=== PATIENT | female | born 1950 | race Caucasian/White ===

== ENCOUNTER 2020-08-15 09:04 | Outpatient (CLI) | payer MEDICARE, OTHER | END 2020-08-15 09:05 | disposition home or self-care (01) | LOC: CSHWCC 09:04 | PROVIDERS: ATTEND Nurse Practitioner Family | DX: L89.93 Pressure ulcer of unspecified site, stage 3 (principal); L89.620 Pressure ulcer of left heel, unstageable; L89.890 Pressure ulcer of other site, unstageable; R60.0 Localized edema; G82.21 Paraplegia, complete; I10 Essential (primary) hypertension; W17.89XD Other fall from one level to another, subsequent encounter | CPT/HCPCS: 11042; 97139; G0463; 99213 ==

== ENCOUNTER 2020-08-29 10:13 | Outpatient (CLI) | payer MEDICARE, OTHER | END 2020-08-29 10:14 | disposition home or self-care (01) | LOC: CSHWCC 10:13 | PROVIDERS: ATTEND Nurse Practitioner Family | DX: L89.620 Pressure ulcer of left heel, unstageable (principal); L89.93 Pressure ulcer of unspecified site, stage 3; L89.890 Pressure ulcer of other site, unstageable; R60.0 Localized edema; G82.21 Paraplegia, complete; W17.89XD Other fall from one level to another, subsequent encounter | CPT/HCPCS: 11042; 99213; G0463 ==

== ENCOUNTER 2020-09-02 13:54 | Outpatient (CLI) | payer MEDICARE, OTHER | END 2020-09-02 13:55 | disposition home or self-care (01) | LOC: CSHMRI 13:54 | PROVIDERS: ATTEND Nurse Practitioner Family | DX: L89.94 Pressure ulcer of unspecified site, stage 4 (principal); L89.894 Pressure ulcer of other site, stage 4; M86.9 Osteomyelitis, unspecified; L89.524 Pressure ulcer of left ankle, stage 4 | CPT/HCPCS: 82565 ==

== ENCOUNTER 2020-09-16 11:29 | Outpatient (CLI) | payer MEDICARE, OTHER | END 2020-09-16 11:30 | disposition home or self-care (01) | LOC: CSHWCC 11:29 | PROVIDERS: ATTEND Nurse Practitioner Family | DX: L89.93 Pressure ulcer of unspecified site, stage 3 (principal); L89.620 Pressure ulcer of left heel, unstageable; L89.890 Pressure ulcer of other site, unstageable; L89.95 Pressure ulcer of unspecified site, unstageable; R60.0 Localized edema; G82.21 Paraplegia, complete; I10 Essential (primary) hypertension; W17.89XA Other fall from one level to another, initial encounter | CPT/HCPCS: 11043; 97139; G0463; 99213 ==

== ENCOUNTER 2020-12-18 10:34 | Outpatient (CLI) | payer MEDICARE, OTHER | END 2020-12-18 10:35 | disposition home or self-care (01) | LOC: CSHWCC 10:34 | PROVIDERS: ATTEND Nurse Practitioner Family | DX: L89.521 Pressure ulcer of left ankle, stage 1 (principal); L89.624 Pressure ulcer of left heel, stage 4; L89.892 Pressure ulcer of other site, stage 2; G82.21 Paraplegia, complete; I10 Essential (primary) hypertension; R60.0 Localized edema; S91.202D Unspecified open wound of left great toe with damage to nail, subsequent encounter; W17.89XD Other fall from one level to another, subsequent encounter | CPT/HCPCS: 15275; 97139; G0463; Q4133; 99213 ==

== ENCOUNTER 2021-01-01 09:55 | Outpatient (CLI) | payer MEDICARE, OTHER | END 2021-01-01 09:56 | disposition home or self-care (01) | LOC: CSHWCC 09:55 | PROVIDERS: ATTEND Nurse Practitioner Family | DX: S91.202D Unspecified open wound of left great toe with damage to nail, subsequent encounter (principal); L89.624 Pressure ulcer of left heel, stage 4; L89.892 Pressure ulcer of other site, stage 2; R60.0 Localized edema; I10 Essential (primary) hypertension; G82.21 Paraplegia, complete; W17.89XS Other fall from one level to another, sequela | CPT/HCPCS: 11042; 99213; G0463 ==

== ENCOUNTER 2021-03-04 09:09 | Outpatient (CLI) | payer MEDICARE, OTHER | END 2021-03-04 09:10 | disposition home or self-care (01) | LOC: CSHWCC 09:09 | PROVIDERS: ATTEND Nurse Practitioner Family | DX: L89.522 Pressure ulcer of left ankle, stage 2 (principal); L89.622 Pressure ulcer of left heel, stage 2; G82.21 Paraplegia, complete; R60.0 Localized edema; I10 Essential (primary) hypertension; W17.89XD Other fall from one level to another, subsequent encounter | CPT/HCPCS: 11042; 97139; G0463; 99213 ==

== ENCOUNTER 2021-03-24 08:40 | Outpatient (CLI) | payer MEDICARE, OTHER | END 2021-03-24 08:41 | disposition home or self-care (01) | LOC: CSHWCC 08:40 | PROVIDERS: ATTEND Nurse Practitioner Family | DX: L89.522 Pressure ulcer of left ankle, stage 2 (principal); L89.622 Pressure ulcer of left heel, stage 2; G82.21 Paraplegia, complete; I10 Essential (primary) hypertension; R60.0 Localized edema; W17.89XD Other fall from one level to another, subsequent encounter | CPT/HCPCS: 11042; 99213; G0463 ==

== ENCOUNTER 2021-04-10 09:17 | Outpatient (CLI) | payer MEDICARE, OTHER | END 2021-04-10 09:18 | disposition home or self-care (01) | LOC: CSHWCC 09:17 | PROVIDERS: ATTEND Nurse Practitioner Family | DX: L89.522 Pressure ulcer of left ankle, stage 2 (principal); L89.622 Pressure ulcer of left heel, stage 2; G82.21 Paraplegia, complete; I10 Essential (primary) hypertension; R60.0 Localized edema; W17.89XD Other fall from one level to another, subsequent encounter | CPT/HCPCS: 29581; 97139; G0463; 99213 ==

== ENCOUNTER 2021-04-24 11:21 | Outpatient (CLI) | payer MEDICARE, OTHER | END 2021-04-24 11:22 | disposition home or self-care (01) | LOC: CSHWCC 11:21 | PROVIDERS: ATTEND Nurse Practitioner Family | DX: L89.522 Pressure ulcer of left ankle, stage 2 (principal); L89.622 Pressure ulcer of left heel, stage 2; R60.0 Localized edema; I10 Essential (primary) hypertension; G82.21 Paraplegia, complete; W17.89XD Other fall from one level to another, subsequent encounter ==

== ENCOUNTER 2021-05-08 13:01 | Outpatient (CLI) | payer MEDICARE, OTHER | END 2021-05-08 13:02 | disposition home or self-care (01) | LOC: CSHWCC 13:01 | PROVIDERS: ATTEND Nurse Practitioner Family | DX: L89.522 Pressure ulcer of left ankle, stage 2 (principal); L89.622 Pressure ulcer of left heel, stage 2; G82.21 Paraplegia, complete; I10 Essential (primary) hypertension; R60.0 Localized edema; W17.89XS Other fall from one level to another, sequela | CPT/HCPCS: 11042; 97139; G0463; 99213 ==

== ENCOUNTER 2021-05-22 12:36 | Outpatient (CLI) | payer MEDICARE, OTHER | END 2021-05-22 12:37 | disposition home or self-care (01) | LOC: CSHWCC 12:36 | PROVIDERS: ATTEND Nurse Practitioner Family | DX: L89.522 Pressure ulcer of left ankle, stage 2 (principal); L89.622 Pressure ulcer of left heel, stage 2; R60.0 Localized edema; G82.21 Paraplegia, complete; I10 Essential (primary) hypertension; W17.89XD Other fall from one level to another, subsequent encounter ==

== ENCOUNTER 2021-06-20 11:03 | Outpatient (CLI) | payer MEDICARE, OTHER | END 2021-06-20 11:04 | disposition home or self-care (01) | LOC: CSHWCC 11:03 | PROVIDERS: ATTEND Nurse Practitioner Family | DX: R60.0 Localized edema (principal) | CPT/HCPCS: 97139; G0463; 99213 ==

== ENCOUNTER 2021-09-10 10:27 | Outpatient (CLI) | payer MEDICARE, OTHER | END 2021-09-10 10:28 | disposition home or self-care (01) | LOC: CSHWCC 10:27 | PROVIDERS: ATTEND Nurse Practitioner Family | DX: I87.312 Chronic venous hypertension (idiopathic) with ulcer of left lower extremity (principal); L97.322 Non-pressure chronic ulcer of left ankle with fat layer exposed; R60.0 Localized edema | CPT/HCPCS: 97139; G0463; 99213 ==

== ENCOUNTER 2021-09-18 12:47 | Outpatient (CLI) | payer MEDICARE, OTHER | END 2021-09-18 12:48 | disposition home or self-care (01) | LOC: CSHWCC 12:47 | PROVIDERS: ATTEND Nurse Practitioner Family | DX: I87.312 Chronic venous hypertension (idiopathic) with ulcer of left lower extremity (principal); L97.322 Non-pressure chronic ulcer of left ankle with fat layer exposed; S91.309D Unspecified open wound, unspecified foot, subsequent encounter; R60.0 Localized edema ==

== ENCOUNTER 2021-09-25 12:49 | Outpatient (CLI) | payer MEDICARE, OTHER | END 2021-09-25 12:50 | disposition home or self-care (01) | LOC: CSHWCC 12:49 | PROVIDERS: ATTEND Nurse Practitioner Family | DX: I87.312 Chronic venous hypertension (idiopathic) with ulcer of left lower extremity (principal); L97.322 Non-pressure chronic ulcer of left ankle with fat layer exposed; R60.0 Localized edema ==

== ENCOUNTER 2021-10-02 13:11 | Outpatient (CLI) | payer MEDICARE, OTHER | END 2021-10-02 13:12 | disposition home or self-care (01) | LOC: CSHWCC 13:11 | PROVIDERS: ATTEND Nurse Practitioner Family | DX: I87.312 Chronic venous hypertension (idiopathic) with ulcer of left lower extremity (principal); L97.322 Non-pressure chronic ulcer of left ankle with fat layer exposed | CPT/HCPCS: 11042; 97607 ==

== ENCOUNTER 2021-10-09 13:30 | Outpatient (CLI) | payer MEDICARE, OTHER | END 2021-10-09 13:31 | disposition home or self-care (01) | LOC: CSHWCC 13:30 | PROVIDERS: ATTEND Nurse Practitioner Family | DX: I87.312 Chronic venous hypertension (idiopathic) with ulcer of left lower extremity (principal); L97.322 Non-pressure chronic ulcer of left ankle with fat layer exposed ==

== ENCOUNTER 2021-10-16 13:01 | Outpatient (CLI) | payer MEDICARE, OTHER | END 2021-10-16 13:02 | disposition home or self-care (01) | LOC: CSHWCC 13:01 | PROVIDERS: ATTEND Nurse Practitioner Family | DX: I87.312 Chronic venous hypertension (idiopathic) with ulcer of left lower extremity (principal); L97.322 Non-pressure chronic ulcer of left ankle with fat layer exposed; R60.0 Localized edema | CPT/HCPCS: 97139; G0463; 99213 ==

== ENCOUNTER 2021-10-23 12:50 | Outpatient (CLI) | payer MEDICARE, OTHER | END 2021-10-23 12:51 | disposition home or self-care (01) | LOC: CSHWCC 12:50 | PROVIDERS: ATTEND Nurse Practitioner Family | DX: I87.312 Chronic venous hypertension (idiopathic) with ulcer of left lower extremity (principal); L97.322 Non-pressure chronic ulcer of left ankle with fat layer exposed; R60.0 Localized edema | CPT/HCPCS: 97139; G0463; 99213 ==

== ENCOUNTER 2021-10-30 12:58 | Outpatient (CLI) | payer MEDICARE, OTHER | END 2021-10-30 12:59 | disposition home or self-care (01) | LOC: CSHWCC 12:58 | PROVIDERS: ATTEND Nurse Practitioner Family | DX: I87.312 Chronic venous hypertension (idiopathic) with ulcer of left lower extremity (principal); L97.322 Non-pressure chronic ulcer of left ankle with fat layer exposed; R60.0 Localized edema | CPT/HCPCS: 29581; 97607 ==

== ENCOUNTER 2021-11-06 12:52 | Outpatient (CLI) | payer MEDICARE, OTHER | END 2021-11-06 12:53 | disposition home or self-care (01) | LOC: CSHWCC 12:52 | PROVIDERS: ATTEND Nurse Practitioner Family | DX: I87.312 Chronic venous hypertension (idiopathic) with ulcer of left lower extremity (principal); L97.322 Non-pressure chronic ulcer of left ankle with fat layer exposed; R60.0 Localized edema | CPT/HCPCS: 29581; 97139; G0463; 99212 ==

== ENCOUNTER 2021-12-01 10:57 | Outpatient (CLI) | payer MEDICARE, OTHER | END 2021-12-01 10:58 | disposition home or self-care (01) | LOC: CSHWCC 10:57 | PROVIDERS: ATTEND Nurse Practitioner Family | DX: I87.312 Chronic venous hypertension (idiopathic) with ulcer of left lower extremity (principal); L97.322 Non-pressure chronic ulcer of left ankle with fat layer exposed; R60.0 Localized edema ==

== ENCOUNTER 2021-12-15 10:11 | Outpatient (CLI) | payer MEDICARE, OTHER | END 2021-12-15 10:12 | disposition home or self-care (01) | LOC: CSHWCC 10:11 | PROVIDERS: ATTEND Nurse Practitioner Family | DX: I87.312 Chronic venous hypertension (idiopathic) with ulcer of left lower extremity (principal); L97.322 Non-pressure chronic ulcer of left ankle with fat layer exposed; R60.0 Localized edema | CPT/HCPCS: 11042; 99212; G0463 ==

== ENCOUNTER 2022-01-14 11:12 | Outpatient (CLI) | payer MEDICARE, OTHER | END 2022-01-14 11:13 | disposition home or self-care (01) | LOC: CSHWCC 11:12 | PROVIDERS: ATTEND Preventive Medicine Undersea and Hyperbaric Medicine | DX: L89.623 Pressure ulcer of left heel, stage 3 (principal); I87.312 Chronic venous hypertension (idiopathic) with ulcer of left lower extremity; L97.322 Non-pressure chronic ulcer of left ankle with fat layer exposed; R60.0 Localized edema | CPT/HCPCS: 99213; G0463 ==

== ENCOUNTER 2022-01-28 11:18 | Outpatient (CLI) | payer OTHER | END 2022-01-28 11:19 | disposition home or self-care (01) | LOC: CSHWCC 11:18 | PROVIDERS: ATTEND Preventive Medicine Undersea and Hyperbaric Medicine | DX: L89.623 Pressure ulcer of left heel, stage 3 (principal); I87.312 Chronic venous hypertension (idiopathic) with ulcer of left lower extremity; L97.322 Non-pressure chronic ulcer of left ankle with fat layer exposed; R60.0 Localized edema | CPT/HCPCS: 99213; G0463 ==

== ENCOUNTER 2022-02-25 11:08 | Outpatient (CLI) | payer MEDICARE, OTHER | END 2022-02-25 11:09 | disposition home or self-care (01) | LOC: CSHWCC 11:08 | PROVIDERS: ATTEND Preventive Medicine Undersea and Hyperbaric Medicine | DX: L89.623 Pressure ulcer of left heel, stage 3 (principal); I87.312 Chronic venous hypertension (idiopathic) with ulcer of left lower extremity; L97.322 Non-pressure chronic ulcer of left ankle with fat layer exposed; R60.0 Localized edema ==

== ENCOUNTER 2022-03-26 10:39 | Outpatient (CLI) | payer OTHER | END 2022-03-26 10:40 | disposition home or self-care (01) | LOC: CSHWCC 10:39 | PROVIDERS: ATTEND Nurse Practitioner Family | DX: R60.0 Localized edema (principal) | CPT/HCPCS: 97139; G0463; 99213 ==

== ENCOUNTER 2023-01-12 13:20 | Emergency (ER) | payer OTHER, MEDICAID ==
[~2023-01-12 13:20] MED LIST: Iopamidol 370 76% 100 ML VIAL ONE
[2023-01-12 14:14] LABS: #Basophils 0.1 10x3/uL (0.0-0.2); #Eosinphils 0.2 10x3/uL (0.0-0.5); #Monocytes 0.4 10x3/uL (0.0-1.1); #Neutrophils 2.9 10x3/uL (1.5-8.4); %Eosinophils 4.1 % (0.0-6.0); %Lymphocytes 27.2 % (18.0-47.0); %Monocytes 7.8 % (0.0-10.0); %Neutrophils 59.7 % (40.0-75.0); Hematocrit 45.9 % (34.9-44.5); Mean Corpuscular HGB CONC 32.7 g/dL (32.0-36.0); Mean Corpuscular Hemoglobin 30.9 pg (27.0-33.0); Mean Corpuscular Volume 94.4 fl (81.6-98.3); Mean Platelet Volume 11.9 fl (7.4-10.4); Platelet Count 150 10x3/uL (150-450); RBC Distribution Width 15.9 % (11.5-14.5); Red Blood Cell (RBC) Count 4.86 10x6/uL (3.90-5.03); White Blood Cell (WBC) Count 4.9 10x3/uL (3.5-10.5)
[2023-01-12 14:24] LABS: INR-International Normal Ratio 1.2; PTT 34.8 sec (22.0-33.0); Prothrombin Time 12.9 sec (9.5-12.1)
[2023-01-12 14:27] LABS: ALT (SGPT) 26 U/L (8-55); AST (SGOT) 33 U/L (5-34); Albumin 3.9 g/dL (3.4-4.8); Alkaline Phosphatase 146 U/L (40-110); Anion Gap 21 mmol/L (10-20); BUN (Urea Nitrogen) 22 mg/dL (9.8-20.1); Bilirubin, Total 4.6 mg/dL (0.2-1.2); Calc. Creatinine Clearance 0 mL/min (70-130); Calcium 9.8 mg/dL (7.8-10.44); Carbon Dioxide 21 mmol/L (23-31); Chloride 105 mmol/L (98-107); Estimated GFR 43; Globulin 2.8 g/dL (2.4-3.5); Glucose 97 mg/dL (83-110); Protein, Total 6.7 g/dL (5.8-8.1); Sodium 143 mmol/L (136-145)
[2023-01-12 14:35] LABS: Troponin I Less than 0.010 ng/mL (< 0.028)
[2023-01-12 17:02] LABS: Lactic Acid 1.8 mmol/L (0.5-2.2)
[2023-01-12 17:23] LABS: SARS-CoV-2 NAA Rapid Test Not Detected (NotDetected)
== END 2023-01-12 19:45 | disposition short-term general hospital (02) ==
LOC: CSHERS 13:20
DX: R06.02 Shortness of breath (principal); I10 Essential (primary) hypertension; Z79.899 Other long term (current) drug therapy; Z20.822 Contact with and (suspected) exposure to COVID-19
CPT/HCPCS: 0240U; 71045; 71275; 80053; 83605; 84484; 85025; 85610; 85730; 87040; 93005; 94760; 36415

== ENCOUNTER 2023-03-01 17:54 | Inpatient (IN) | payer OTHER, MEDICAID ==
[~2023-03-01 17:54] MED LIST changes: +Iopamidol 300 61% 100 ML VIAL FS ONE; -Iopamidol 370 76% 100 ML VIAL ONE
[2023-03-01] MEDS ORDERED: Ondansetron PF 4 MG/2 ML Vial ONE (19:16)
[2023-03-01] MEDS ORDERED: Morphine 4 MG/ML VIAL ONE (19:16)
[2023-03-01 19:17] LABS: #Eosinphils 0.1 10x3/uL (0.0-0.5); #Monocytes 0.7 10x3/uL (0.0-1.1); #Neutrophils 9.3 10x3/uL (1.5-8.4); %Basophils 0.3 % (0.0-2.0); %Eosinophils 0.6 % (0.0-6.0); %Lymphocytes 11.3 % (18.0-47.0); %Monocytes 6.3 % (0.0-10.0); %Neutrophils 80.7 % (40.0-75.0); Hematocrit 43.3 % (34.9-44.5); Hemoglobin 14.5 g/dL (12.0-15.5); Mean Corpuscular HGB CONC 33.5 g/dL (32.0-36.0); Mean Corpuscular Hemoglobin 31.3 pg (27.0-33.0); Mean Corpuscular Volume 93.5 fl (81.6-98.3); Mean Platelet Volume 10.6 fl (7.4-10.4); Platelet Count 248 10x3/uL (150-450); RBC Distribution Width 14.9 % (11.5-14.5); Red Blood Cell (RBC) Count 4.63 10x6/uL (3.90-5.03); White Blood Cell (WBC) Count 11.6 10x3/uL (3.5-10.5)
[2023-03-01 19:31] LABS: ALT (SGPT) 18 U/L (8-55); AST (SGOT) 24 U/L (5-34); Albumin 3.4 g/dL (3.4-4.8); Alkaline Phosphatase 137 U/L (40-110); Anion Gap 17 mmol/L (10-20); BUN (Urea Nitrogen) 48 mg/dL (9.8-20.1); Bilirubin, Total 3.2 mg/dL (0.2-1.2); Calc. Creatinine Clearance 0 mL/min (70-130); Calcium 8.9 mg/dL (7.8-10.44); Carbon Dioxide 23 mmol/L (23-31); Chloride 102 mmol/L (98-107); Estimated GFR 44; Globulin 3.1 g/dL (2.4-3.5); Glucose 95 mg/dL (83-110); Lipase 21 U/L (8-78); Potassium 4.1 mmol/L (3.5-5.1); Protein, Total 6.5 g/dL (5.8-8.1); Sodium 138 mmol/L (136-145)
[2023-03-01 19:45] LABS: INR-International Normal Ratio 1.2; PTT 30.9 sec (22.0-33.0); Prothrombin Time 13.2 sec (9.5-12.1)
[2023-03-01] MEDS ORDERED: Vancomycin 1 GM VIAL ONE (19:45)
[2023-03-01] MEDS ORDERED: Cefepime 2 GM VIAL ONE (19:45)
[2023-03-01 20:44] LABS: Bilirubin Neg (Negative); Blood, Urine 50 (Negative); Clarity Cloudy (Clear); Glucose, Urine (Dipstick) Normal (Negative); Ketone, Urine Negative (Negative); Leukocyte 500 (Negative); Nitrite Positive (Negative); Protein, Urine (Dipstick) 30 mg/dl (Neg-Trace); Urobilinogen Normal mg/dL (Less than 2)
[2023-03-01 21:04] LABS: Bacteria/HPF 2+ HPF (None Seen); CAUTI Indications for Culture Spinal Cord Injury; Squamous Epithelial 0-3 HPF (0-3); Urine Culture Reflex Yes Yes; WBC/HPF Greater Than 50 HPF (0-3)
[2023-03-01 22:05] LABS: Digoxin 0.71 ng/mL (0.8-2.0)
[2023-03-02] MEDS ORDERED: Senokot S 8.6-50 MG TAB PO PRN (00:59)
[2023-03-02] MEDS ORDERED: Guaifenesin DM 100-10/5 ML UDCUP PO PRN (00:59)
[2023-03-02] MEDS: Lactated Ringer's 1,000 ML IV SCH ×2 (03:34→16:32)
[2023-03-02] MEDS ORDERED: Meropenem 1 GM in Sodium Chloride 0.9% 100 ML IVPB SCH ×3 (04:00→12:00)
[2023-03-02] MEDS ORDERED: FLU VACC QS2023(65UP)/MF59C/PF 60 MCG/0.5 ML SYRINGE IM ONE (04:00)
[2023-03-02 04:40] LABS: #Basophils 0.1 10x3/uL (0.0-0.2); #Eosinphils 0.1 10x3/uL (0.0-0.5); #Monocytes 0.6 10x3/uL (0.0-1.1); #Neutrophils 8.1 10x3/uL (1.5-8.4); %Basophils 0.5 % (0.0-2.0); %Eosinophils 0.9 % (0.0-6.0); %Lymphocytes 8.4 % (18.0-47.0); %Monocytes 5.8 % (0.0-10.0); %Neutrophils 83.6 % (40.0-75.0); Hematocrit 37.9 % (34.9-44.5); Hemoglobin 12.3 g/dL (12.0-15.5); Mean Corpuscular HGB CONC 32.5 g/dL (32.0-36.0); Mean Corpuscular Hemoglobin 30.3 pg (27.0-33.0); Mean Corpuscular Volume 93.3 fl (81.6-98.3); Mean Platelet Volume 10.4 fl (7.4-10.4); Platelet Count 202 10x3/uL (150-450); Red Blood Cell (RBC) Count 4.06 10x6/uL (3.90-5.03); White Blood Cell (WBC) Count 9.6 10x3/uL (3.5-10.5)
[2023-03-02 04:49] LABS: Anion Gap 15 mmol/L (10-20); BUN (Urea Nitrogen) 39 mg/dL (9.8-20.1); Calc. Creatinine Clearance 66 mL/min (70-130); Calcium 8.1 mg/dL (7.8-10.44); Carbon Dioxide 18 mmol/L (23-31); Chloride 109 mmol/L (98-107); Estimated GFR 64; Glucose 97 mg/dL (83-110); Potassium 3.6 mmol/L (3.5-5.1); Sodium 138 mmol/L (136-145)
[2023-03-02] MEDS ORDERED: Vancomycin HCl 500 MG in Sodium Chloride 0.9% 100 ML IVPB SCH (05:00)
[2023-03-02] MEDS: Mometasone/Formoterol 60 PUFF AER INH SCH ×2 (07:04→19:18)
[2023-03-02] MEDS: Ipratropium/Albuterol 3 ML NEB NEB SCH ×4 (07:04→19:15)
[2023-03-02] MEDS: NOREPINEPHRINE 8 MG/250 ML-D5W 250 ML IVPB SCH ×2 (08:15→19:42)
[2023-03-02] MEDS ORDERED: RIOCIGUAT 1 MG PO SCH (09:00)
[2023-03-02] MEDS: Digoxin 0.125 MG TAB PO SCH (09:04)
[2023-03-02] MEDS: Pantoprazole 40 MG VIAL IVP SCH (09:05)
[2023-03-02 14:06] LABS: Campy jejuni + coli by PCR Negative (Negative); STEC Shiga Toxin 1+2 Negative (Negative); Salmonella spp. by PCR Negative (Negative); Shigella spp + EIEC by PCR Negative (Negative)
[2023-03-02 18:13] LABS: Actual Bicarbonate (HCO3v) 23.6 mEq/L (22-28); Base Excess -0.5 mEq/L (-2 - +2); Calcium, Ionized (venous) 1.14 mmol/L (1.16-1.32); Chloride (VBG) 101 mmol/L (98-106); Hematocrit-VBG 46 % (36.0-47.0); Hemoglobin (Hb) 15.8 g/dL (11.7-16.1); Potassium (VBG) 3.79 mmol/L (3.70-5.30); Sodium 137 mmol/L (133-146); pH (venous) 7.421 (7.32-7.43)
[2023-03-02 18:46] LABS: Puncture Site Other Site; RapidComm Collect By CBN
[2023-03-02] MEDS: Meropenem 1 GM in Sodium Chloride 0.9% 100 ML IVPB SCH (20:02)
[2023-03-02] MEDS ORDERED: Vancomycin 1 GM in Sodium Chloride 0.9% 250 ML 250 ML IVPB SCH (21:00)
[2023-03-03 04:03] LABS: #Basophils 0.1 10x3/uL (0.0-0.2); #Monocytes 0.7 10x3/uL (0.0-1.1); #Neutrophils 13.8 10x3/uL (1.5-8.4); %Basophils 0.4 % (0.0-2.0); %Eosinophils 0.2 % (0.0-6.0); %Lymphocytes 4.4 % (18.0-47.0); %Monocytes 4.8 % (0.0-10.0); %Neutrophils 89.3 % (40.0-75.0); Hematocrit 40.4 % (34.9-44.5); Hemoglobin 13.4 g/dL (12.0-15.5); Mean Corpuscular HGB CONC 33.2 g/dL (32.0-36.0); Mean Corpuscular Hemoglobin 31.1 pg (27.0-33.0); Mean Corpuscular Volume 93.7 fl (81.6-98.3); Mean Platelet Volume 10.5 fl (7.4-10.4); Platelet Count 234 10x3/uL (150-450); RBC Distribution Width 14.9 % (11.5-14.5); Red Blood Cell (RBC) Count 4.31 10x6/uL (3.90-5.03); White Blood Cell (WBC) Count 15.4 10x3/uL (3.5-10.5)
[2023-03-03 04:11] LABS: Anion Gap 16 mmol/L (10-20); BUN (Urea Nitrogen) 26 mg/dL (9.8-20.1); Calc. Creatinine Clearance 62 mL/min (70-130); Carbon Dioxide 18 mmol/L (23-31); Chloride 105 mmol/L (98-107); Estimated GFR 60; Glucose 128 mg/dL (83-110); Potassium 3.7 mmol/L (3.5-5.1); Sodium 135 mmol/L (136-145)
[2023-03-03] MEDS: Meropenem 1 GM in Sodium Chloride 0.9% 100 ML IVPB SCH ×3 (04:31→19:29)
[2023-03-03] MEDS: NOREPINEPHRINE 8 MG/250 ML-D5W 250 ML IVPB SCH ×2 (05:26→23:52)
[2023-03-03] MEDS: Ipratropium/Albuterol 3 ML NEB NEB SCH ×4 (07:05→20:30)
[2023-03-03] MEDS: Mometasone/Formoterol 60 PUFF AER INH SCH ×2 (07:05→20:30)
[2023-03-03] MEDS: Digoxin 0.125 MG TAB PO SCH (07:48)
[2023-03-03] MEDS: Pantoprazole 40 MG VIAL IVP SCH (07:48)
[2023-03-03] MEDS: Vancomycin 1 GM in Sodium Chloride 0.9% 250 ML 250 ML IVPB SCH (07:49)
[2023-03-03] MEDS ORDERED: Rocuronium Bromide 10 MG/ML (10ML VIAL) ONE (12:36)
[2023-03-03] MEDS ORDERED: PROPOFOL 20 ML ONE (12:36)
[2023-03-03] MEDS ORDERED: Lidocaine 2% PF 5 ML VIAL ONE (12:36)
[2023-03-03] MEDS ORDERED: Succinylcholine 200 MG/10 ml SYRINGE FS ONE (12:36)
[2023-03-03] MEDS ORDERED: fentaNYL 50 mcg/mL 1 mL Vial ONE (12:36)
[2023-03-03] MEDS ORDERED: Bupivacaine PF 0.5% 30 ML VIAL ONE (12:43)
[2023-03-03] MEDS ORDERED: EPINEPHrine 1 MG/ML VIAL ONE (12:43)
[2023-03-03] MEDS: Lactated Ringer's 1,000 ML IV SCH ×2 (15:15→23:53)
[2023-03-03 21:59] LABS: Campy jejuni + coli by PCR Negative (Negative); STEC Shiga Toxin 1+2 Negative (Negative); Salmonella spp. by PCR Negative (Negative); Shigella spp + EIEC by PCR Negative (Negative)
[2023-03-04] MEDS: Meropenem 1 GM in Sodium Chloride 0.9% 100 ML IVPB SCH ×3 (03:05→20:31)
[2023-03-04] MEDS: Vancomycin 1 GM in Sodium Chloride 0.9% 250 ML 250 ML IVPB SCH (03:05)
[2023-03-04 03:19] LABS: #Basophils 0.1 10x3/uL (0.0-0.2); #Eosinphils 0.3 10x3/uL (0.0-0.5); #Monocytes 0.7 10x3/uL (0.0-1.1); #Neutrophils 12.5 10x3/uL (1.5-8.4); %Basophils 0.4 % (0.0-2.0); %Lymphocytes 7.4 % (18.0-47.0); %Monocytes 4.8 % (0.0-10.0); %Neutrophils 84.2 % (40.0-75.0); Hematocrit 28.1 % (34.9-44.5); Hemoglobin 9.3 g/dL (12.0-15.5); Mean Corpuscular HGB CONC 33.1 g/dL (32.0-36.0); Mean Corpuscular Hemoglobin 31.1 pg (27.0-33.0); Mean Platelet Volume 10.6 fl (7.4-10.4); Platelet Count 192 10x3/uL (150-450); RBC Distribution Width 15.1 % (11.5-14.5); Red Blood Cell (RBC) Count 2.99 10x6/uL (3.90-5.03); White Blood Cell (WBC) Count 14.9 10x3/uL (3.5-10.5)
[2023-03-04 03:22] LABS: Anion Gap 11 mmol/L (10-20); BUN (Urea Nitrogen) 18 mg/dL (9.8-20.1); Calc. Creatinine Clearance 90 mL/min (70-130); Carbon Dioxide 23 mmol/L (23-31); Chloride 106 mmol/L (98-107); Estimated GFR 85; Glucose 126 mg/dL (83-110); Potassium 3.5 mmol/L (3.5-5.1); Sodium 136 mmol/L (136-145)
[2023-03-04] MEDS: Acetaminophen 325 MG TAB PO PRN (04:37)
[2023-03-04] MEDS: HYDROcodone/Acetaminophen 5/325 mg Tablet PO PRN ×2 (05:35→20:31)
[2023-03-04] MEDS: Lactated Ringer's 1,000 ML IV SCH ×2 (05:47→12:09)
[2023-03-04] MEDS: Ipratropium/Albuterol 3 ML NEB NEB SCH ×4 (07:36→20:25)
[2023-03-04] MEDS: Mometasone/Formoterol 60 PUFF AER INH SCH ×2 (07:38→20:25)
[2023-03-04] MEDS: Digoxin 0.125 MG TAB PO SCH (09:44)
[2023-03-04] MEDS: NOREPINEPHRINE 8 MG/250 ML-D5W 250 ML IVPB SCH ×2 (09:48→17:55)
[2023-03-04] MEDS ORDERED: Hydrocortisone Sod Succ/PF 100 mg/2 ml Vial IVP SCH (15:45)
[2023-03-04] MEDS ORDERED: Sodium Chloride 0.9% 1,000 ML IV SCH (15:45)
[2023-03-04] MEDS: Vasopressin 20 UNITS, Admixture Fee 1 EACH in Sodium Chloride 0.9% 50 ML IV SCH ×2 (16:26→21:46)
[2023-03-04] MEDS: Calcium Carbonate 500 MG ChewTAB PO PRN (20:40)
[2023-03-05] MEDS: Meropenem 1 GM in Sodium Chloride 0.9% 100 ML IVPB SCH ×3 (05:10→20:25)
[2023-03-05 05:45] LABS: #Monocytes 0.3 10x3/uL (0.0-1.1); #Neutrophils 8.7 10x3/uL (1.5-8.4); %Basophils 0.2 % (0.0-2.0); %Lymphocytes 9.5 % (18.0-47.0); Anion Gap 12 mmol/L (10-20); BUN (Urea Nitrogen) 13 mg/dL (9.8-20.1); Calc. Creatinine Clearance 108 mL/min (70-130); Calcium 7.9 mg/dL (7.8-10.44); Carbon Dioxide 19 mmol/L (23-31); Chloride 107 mmol/L (98-107); Estimated GFR 94; Glucose 166 mg/dL (83-110); Hematocrit 23.6 % (34.9-44.5); Hemoglobin 8.1 g/dL (12.0-15.5); Mean Corpuscular HGB CONC 34.3 g/dL (32.0-36.0); Mean Corpuscular Hemoglobin 32.1 pg (27.0-33.0); Mean Corpuscular Volume 93.7 fl (81.6-98.3); Mean Platelet Volume 10.8 fl (7.4-10.4); Platelet Count 156 10x3/uL (150-450); Potassium 3.5 mmol/L (3.5-5.1); RBC Distribution Width 14.9 % (11.5-14.5); Red Blood Cell (RBC) Count 2.52 10x6/uL (3.90-5.03); Sodium 134 mmol/L (136-145); White Blood Cell (WBC) Count 10.2 10x3/uL (3.5-10.5)
[2023-03-05] MEDS: NOREPINEPHRINE 8 MG/250 ML-D5W 250 ML IVPB SCH (05:58)
[2023-03-05] MEDS: Vasopressin 20 UNITS, Admixture Fee 1 EACH in Sodium Chloride 0.9% 50 ML IV SCH ×2 (07:43→15:25)
[2023-03-05] MEDS: HYDROcodone/Acetaminophen 5/325 mg Tablet PO PRN ×2 (07:58→20:25)
[2023-03-05] MEDS: Ondansetron PF 4 MG/2 ML Vial IVP PRN (07:58)
[2023-03-05] MEDS: Ipratropium/Albuterol 3 ML NEB NEB SCH ×4 (08:02→19:41)
[2023-03-05] MEDS: Mometasone/Formoterol 60 PUFF AER INH SCH ×2 (08:05→19:41)
[2023-03-05] MEDS: Digoxin 0.125 MG TAB PO SCH (08:42)
[2023-03-06] MEDS: Vasopressin 20 UNITS, Admixture Fee 1 EACH in Sodium Chloride 0.9% 50 ML IV SCH ×2 (01:04→09:30)
[2023-03-06] MEDS: Meropenem 1 GM in Sodium Chloride 0.9% 100 ML IVPB SCH ×3 (05:08→19:35)
[2023-03-06 06:19] LABS: #Basophils 0.1 10x3/uL (0.0-0.2); #Eosinphils 0.3 10x3/uL (0.0-0.5); #Monocytes 0.7 10x3/uL (0.0-1.1); #Neutrophils 8.2 10x3/uL (1.5-8.4); %Basophils 0.4 % (0.0-2.0); %Eosinophils 2.8 % (0.0-6.0); %Lymphocytes 18.6 % (18.0-47.0); %Monocytes 5.5 % (0.0-10.0); %Neutrophils 68.9 % (40.0-75.0); Hematocrit 22.9 % (34.9-44.5); Hemoglobin 7.6 g/dL (12.0-15.5); Mean Corpuscular HGB CONC 33.2 g/dL (32.0-36.0); Mean Corpuscular Hemoglobin 31.8 pg (27.0-33.0); Mean Corpuscular Volume 95.8 fl (81.6-98.3); Mean Platelet Volume 11.1 fl (7.4-10.4); Platelet Count 165 10x3/uL (150-450); RBC Distribution Width 15.4 % (11.5-14.5); Red Blood Cell (RBC) Count 2.39 10x6/uL (3.90-5.03); White Blood Cell (WBC) Count 11.9 10x3/uL (3.5-10.5)
[2023-03-06 06:20] LABS: Anion Gap 13 mmol/L (10-20); BUN (Urea Nitrogen) 14 mg/dL (9.8-20.1); Calc. Creatinine Clearance 118 mL/min (70-130); Calcium 7.7 mg/dL (7.8-10.44); Carbon Dioxide 20 mmol/L (23-31); Chloride 104 mmol/L (98-107); Estimated GFR 94; Glucose 114 mg/dL (83-110); Potassium 3.5 mmol/L (3.5-5.1); Sodium 133 mmol/L (136-145)
[2023-03-06] MEDS: Ipratropium/Albuterol 3 ML NEB NEB SCH ×4 (07:15→19:38)
[2023-03-06] MEDS: Mometasone/Formoterol 60 PUFF AER INH SCH ×2 (07:17→19:38)
[2023-03-06] MEDS: Digoxin 0.125 MG TAB PO SCH (08:52)
[2023-03-06] MEDS: Calcium Carbonate 500 MG ChewTAB PO PRN (20:18)
[2023-03-06] MEDS: Polyethylene Glycol 3350 17 GM Packet PO PRN (20:18)
[2023-03-06] MEDS: HYDROcodone/Acetaminophen 5/325 mg Tablet PO PRN (21:56)
[2023-03-07] MEDS: Meropenem 1 GM in Sodium Chloride 0.9% 100 ML IVPB SCH ×3 (04:21→20:13)
[2023-03-07] MEDS: Vasopressin 20 UNITS, Admixture Fee 1 EACH in Sodium Chloride 0.9% 50 ML IV SCH ×2 (04:21→20:14)
[2023-03-07 06:00] LABS: Hematocrit 24.6 % (34.9-44.5); Hemoglobin 8.1 g/dL (12.0-15.5); Mean Corpuscular HGB CONC 32.9 g/dL (32.0-36.0); Mean Corpuscular Hemoglobin 31.4 pg (27.0-33.0); Mean Corpuscular Volume 95.3 fl (81.6-98.3); Mean Platelet Volume 10.9 fl (7.4-10.4); Platelet Count 209 10x3/uL (150-450); RBC Distribution Width 15.6 % (11.5-14.5); Red Blood Cell (RBC) Count 2.58 10x6/uL (3.90-5.03); White Blood Cell (WBC) Count 14.3 10x3/uL (3.5-10.5)
[2023-03-07 06:01] LABS: MDiff Complete? YES
[2023-03-07 06:05] LABS: Anion Gap 15 mmol/L (10-20); BUN (Urea Nitrogen) 13 mg/dL (9.8-20.1); Calc. Creatinine Clearance 114 mL/min (70-130); Calcium 8.2 mg/dL (7.8-10.44); Carbon Dioxide 20 mmol/L (23-31); Chloride 103 mmol/L (98-107); Estimated GFR 93; Glucose 105 mg/dL (83-110); Potassium 3.7 mmol/L (3.5-5.1); Sodium 134 mmol/L (136-145)
[2023-03-07 06:30] LABS: Band 6 % (5-11); Lymphocytes 21 % (21-51); Metamyelocyte 5 % (0-0); Monocytes 5 % (0-10); Neutrophil 63 % (42-75); Nucleated RBC (Manual Ct) 1 % (0)
[2023-03-07 06:36] LABS: Anisocytosis SLIGHT = 6-15 cells (100X) (0-5/hpf); Hypochromia SLIGHT = 6-15 cells (100X) (0-5/hpf); Macrocytosis SLIGHT = 6-15 cells (100X) (0-5/hpf); Microcytosis SLIGHT = 6-15 cells (100X) (0-5/hpf); Ovalocytes SLIGHT = 2-5 cells (100X) (0-1/hpf); Platelet Adequacy Comment Appears Adequate
[2023-03-07] MEDS: Ipratropium/Albuterol 3 ML NEB NEB SCH ×4 (07:30→19:35)
[2023-03-07] MEDS: Mometasone/Formoterol 60 PUFF AER INH SCH ×2 (07:30→19:35)
[2023-03-07] MEDS: Polyethylene Glycol 3350 17 GM Packet PO PRN (09:21)
[2023-03-07] MEDS ORDERED: Cosyntropin 250 MCG VIAL SLOW IVP SCH ×2 (10:15→11:00)
[2023-03-07] MEDS: Digoxin 0.125 MG TAB PO SCH (10:26)
[2023-03-07 12:45] LABS: Digoxin 1.38 ng/mL (0.8-2.0)
[2023-03-07] MEDS: Hydrocortisone Sod Succ/PF 100 mg/2 ml Vial IVP SCH ×2 (14:34→21:08)
[2023-03-07] MEDS: Ondansetron PF 4 MG/2 ML Vial IVP PRN (20:14)
[2023-03-08] MEDS: Meropenem 1 GM in Sodium Chloride 0.9% 100 ML IVPB SCH ×2 (03:21→12:43)
[2023-03-08 03:56] LABS: Hematocrit 23.7 % (34.9-44.5); Mean Corpuscular HGB CONC 33.8 g/dL (32.0-36.0); Mean Corpuscular Hemoglobin 32.3 pg (27.0-33.0); Mean Corpuscular Volume 95.6 fl (81.6-98.3); Mean Platelet Volume 11.1 fl (7.4-10.4); Platelet Count 185 10x3/uL (150-450); RBC Distribution Width 15.8 % (11.5-14.5); Red Blood Cell (RBC) Count 2.48 10x6/uL (3.90-5.03); White Blood Cell (WBC) Count 14.8 10x3/uL (3.5-10.5)
[2023-03-08 03:59] LABS: MDiff Complete? YES
[2023-03-08 04:03] LABS: Anion Gap 15 mmol/L (10-20); BUN (Urea Nitrogen) 13 mg/dL (9.8-20.1); Calc. Creatinine Clearance 113 mL/min (70-130); Calcium 8.3 mg/dL (7.8-10.44); Carbon Dioxide 20 mmol/L (23-31); Chloride 101 mmol/L (98-107); Estimated GFR 93; Glucose 122 mg/dL (83-110); Potassium 3.8 mmol/L (3.5-5.1); Sodium 132 mmol/L (136-145)
[2023-03-08 05:02] LABS: Platelet Adequacy Comment Appears Adequate
[2023-03-08 05:03] LABS: Microcytosis SLIGHT = 6-15 cells (100X) (0-5/hpf); Polychromasia SLIGHT = 2-3 cells (100X) (0-2/hpf)
[2023-03-08 05:05] LABS: Band 10 % (5-11); Eosinophils 1 % (0-10); Lymphocytes 19 % (21-51); Metamyelocyte 1 % (0-0); Monocytes 3 % (0-10); Neutrophil 65 % (42-75); Nucleated RBC (Manual Ct) 2 % (0); Reactive Lymphocytes 1 % (0-10)
[2023-03-08] MEDS: Hydrocortisone Sod Succ/PF 100 mg/2 ml Vial IVP SCH ×3 (06:03→21:21)
[2023-03-08] MEDS: Mometasone/Formoterol 60 PUFF AER INH SCH ×2 (07:30→19:20)
[2023-03-08] MEDS: Ipratropium/Albuterol 3 ML NEB NEB SCH ×4 (07:30→19:18)
[2023-03-08] MEDS: Digoxin 0.125 MG TAB PO SCH (07:41)
[2023-03-08] MEDS: Polyethylene Glycol 3350 17 GM Packet PO PRN (08:20)
[2023-03-08] MEDS ORDERED: Lactated Ringer's 500 ML IV SCH (09:00)
[2023-03-08 09:41] LABS: INR-International Normal Ratio 1.2; PTT 43.3 sec (22.0-33.0); Prothrombin Time 13.2 sec (9.5-12.1)
[2023-03-08] MEDS: Ascorbic Acid 500 mg Chewable Tablet PO SCH ×3 (09:54→20:44)
[2023-03-08] MEDS ORDERED: Sodium Bicarbonate 150 MEQ in Dextrose 5% in Water 1,000 ML IV SCH (10:00)
[2023-03-08] MEDS: Vasopressin 20 UNITS, Admixture Fee 1 EACH in Sodium Chloride 0.9% 50 ML IV SCH ×2 (10:06→21:53)
[2023-03-08] MEDS ORDERED: Lidocaine 1% PF 5 ML VIAL ONE (10:23)
[2023-03-08] MEDS ORDERED: Sodium Bicarbonate 2.5 MEQ/5 ML VIAL ONE (10:23)
[2023-03-08] MEDS: HYDROcodone/Acetaminophen 5/325 mg Tablet PO PRN (10:42)
[2023-03-08 14:23] LABS: Vitamin D, 25 Hydroxy 27.7 ng/ml (> 30.0)
[2023-03-08] MEDS ORDERED: VANCOMYCIN 1.75 GM/350 ML BAG 1.75 GM in Premix 1 BAG IVPB SCH (15:30)
[2023-03-08] MEDS: cefTRIAXone\\ROCEPHIN 2 GM in Sodium Chloride 0.9% 100 ML IVPB SCH (20:42)
[2023-03-08] MEDS: metroNIDAZOLE 500 MG in Premix 1 BAG IVPB SCH (21:20)
[2023-03-08] MEDS ORDERED: NOREPINEPHRINE 8 MG/250 ML-D5W 250 ML ONE (23:34)
[2023-03-08] MEDS ORDERED: NOREPINEPHRINE 8 MG/250 ML-D5W 250 ML IVPB SCH (23:45)
[2023-03-09] MEDS: Ascorbic Acid 500 mg Chewable Tablet PO SCH ×4 (03:18→21:33)
[2023-03-09] MEDS ORDERED: Vancomycin 1 GM in Sodium Chloride 0.9% 250 ML 250 ML IVPB SCH (04:00)
[2023-03-09 04:01] LABS: Hematocrit 24.1 % (34.9-44.5); Hemoglobin 8.1 g/dL (12.0-15.5); MDiff Complete? YES; Mean Corpuscular HGB CONC 33.6 g/dL (32.0-36.0); Mean Corpuscular Hemoglobin 32.5 pg (27.0-33.0); Mean Corpuscular Volume 96.8 fl (81.6-98.3); Mean Platelet Volume 11.4 fl (7.4-10.4); Platelet Count 203 10x3/uL (150-450); Red Blood Cell (RBC) Count 2.49 10x6/uL (3.90-5.03); White Blood Cell (WBC) Count 20.2 10x3/uL (3.5-10.5)
[2023-03-09 04:15] LABS: Anion Gap 14 mmol/L (10-20); BUN (Urea Nitrogen) 16 mg/dL (9.8-20.1); Calc. Creatinine Clearance 103 mL/min (70-130); Calcium 8.2 mg/dL (7.8-10.44); Carbon Dioxide 22 mmol/L (23-31); Chloride 99 mmol/L (98-107); Estimated GFR 92; Glucose 152 mg/dL (83-110); Sodium 131 mmol/L (136-145)
[2023-03-09 04:28] LABS: Platelet Adequacy Comment Appears Adequate
[2023-03-09 04:29] LABS: Polychromasia SLIGHT = 2-3 cells (100X) (0-2/hpf)
[2023-03-09 04:31] LABS: Band 10 % (5-11); Lymphocytes 13 % (21-51); Monocytes 5 % (0-10); Neutrophil 71 % (42-75); Nucleated RBC (Manual Ct) 3 % (0); Reactive Lymphocytes 1 % (0-10)
[2023-03-09] MEDS: Hydrocortisone Sod Succ/PF 100 mg/2 ml Vial IVP SCH ×3 (05:27→21:33)
[2023-03-09] MEDS: metroNIDAZOLE 500 MG in Premix 1 BAG IVPB SCH ×3 (05:27→21:32)
[2023-03-09] MEDS: Mometasone/Formoterol 60 PUFF AER INH SCH ×2 (07:00→19:58)
[2023-03-09] MEDS: Ipratropium/Albuterol 3 ML NEB NEB SCH ×4 (07:15→19:58)
[2023-03-09] MEDS: Vasopressin 20 UNITS, Admixture Fee 1 EACH in Sodium Chloride 0.9% 50 ML IV SCH (14:47)
[2023-03-09] MEDS: cefTRIAXone\\ROCEPHIN 2 GM in Sodium Chloride 0.9% 100 ML IVPB SCH (20:19)
[2023-03-10] MEDS: Vancomycin 1.5 GRAM/300 ML BAG 1.5 GM in Premix 1 BAG IVPB SCH (00:28)
[2023-03-10] MEDS: Vasopressin 20 UNITS, Admixture Fee 1 EACH in Sodium Chloride 0.9% 50 ML IV SCH ×2 (01:27→20:00)
[2023-03-10 04:41] LABS: Hematocrit 22.8 % (34.9-44.5); Hemoglobin 7.4 g/dL (12.0-15.5); Mean Corpuscular HGB CONC 32.5 g/dL (32.0-36.0); Mean Corpuscular Hemoglobin 31.8 pg (27.0-33.0); Mean Corpuscular Volume 97.9 fl (81.6-98.3); Mean Platelet Volume 11.3 fl (7.4-10.4); Platelet Count 155 10x3/uL (150-450); RBC Distribution Width 17.5 % (11.5-14.5); Red Blood Cell (RBC) Count 2.33 10x6/uL (3.90-5.03); White Blood Cell (WBC) Count 14.2 10x3/uL (3.5-10.5)
[2023-03-10 04:43] LABS: Anion Gap 12 mmol/L (10-20); BUN (Urea Nitrogen) 26 mg/dL (9.8-20.1); Calc. Creatinine Clearance 127 mL/min (70-130); Carbon Dioxide 23 mmol/L (23-31); Chloride 100 mmol/L (98-107); Estimated GFR 94; Glucose 130 mg/dL (83-110); Potassium 3.7 mmol/L (3.5-5.1); Sodium 131 mmol/L (136-145)
[2023-03-10 04:54] LABS: MDiff Complete? YES
[2023-03-10 05:08] LABS: Platelet Adequacy Comment Appears Adequate
[2023-03-10 05:09] LABS: Microcytosis SLIGHT = 6-15 cells (100X) (0-5/hpf); Polychromasia SLIGHT = 2-3 cells (100X) (0-2/hpf)
[2023-03-10 05:11] LABS: Band 10 % (5-11); Lymphocytes 13 % (21-51); Monocytes 5 % (0-10); Neutrophil 72 % (42-75); Nucleated RBC (Manual Ct) 2 % (0)
[2023-03-10] MEDS: metroNIDAZOLE 500 MG in Premix 1 BAG IVPB SCH ×3 (06:04→21:56)
[2023-03-10] MEDS: Hydrocortisone Sod Succ/PF 100 mg/2 ml Vial IVP SCH ×2 (06:05→13:16)
[2023-03-10] MEDS: Ascorbic Acid 500 mg Chewable Tablet PO SCH ×3 (06:09→13:16)
[2023-03-10] MEDS: Ipratropium/Albuterol 3 ML NEB NEB SCH ×4 (07:09→19:30)
[2023-03-10] MEDS: Mometasone/Formoterol 60 PUFF AER INH SCH ×2 (07:10→19:30)
[2023-03-10] MEDS ORDERED: Ipratropium/Albuterol 3 ML NEB ONE (07:14)
[2023-03-10] MEDS ORDERED: Fludrocortisone Acetate 0.1 MG TAB PO SCH (09:00)
[2023-03-10] MEDS: Polyethylene Glycol 3350 17 GM Packet PO PRN (09:37)
[2023-03-10] MEDS ORDERED: Lanolin Alcohol/MO/W.Pet/Ceres 57 GM CR TP PRN (14:43)
[2023-03-10 16:17] LABS: Iron 35 ug/dL (50-170); Iron Binding Capacity, Total 201 mcg/dL (265-497)
[2023-03-10] MEDS: cefTRIAXone\\ROCEPHIN 2 GM in Sodium Chloride 0.9% 100 ML IVPB SCH (20:33)
[2023-03-10] MEDS: Acetaminophen 325 MG TAB PO PRN (20:33)
[2023-03-11] MEDS: Albumin 25% 25 GM/100 ML BOT IVPB SCH ×5 (00:53→22:56)
[2023-03-11] MEDS: Vancomycin 1.5 GRAM/300 ML BAG 1.5 GM in Premix 1 BAG IVPB SCH (01:17)
[2023-03-11 04:18] LABS: Anion Gap 14 mmol/L (10-20); BUN (Urea Nitrogen) 27 mg/dL (9.8-20.1); Calc. Creatinine Clearance 121 mL/min (70-130); Calcium 8.1 mg/dL (7.8-10.44); Carbon Dioxide 21 mmol/L (23-31); Chloride 101 mmol/L (98-107); Estimated GFR 94; Glucose 113 mg/dL (83-110); Potassium 3.4 mmol/L (3.5-5.1); Sodium 133 mmol/L (136-145)
[2023-03-11 04:28] LABS: #Monocytes 0.5 10x3/uL (0.0-1.1); #Neutrophils 7.5 10x3/uL (1.5-8.4); %Basophils 0.1 % (0.0-2.0); %Lymphocytes 14.3 % (18.0-47.0); %Monocytes 5.1 % (0.0-10.0); %Neutrophils 76.6 % (40.0-75.0); Hematocrit 21.9 % (34.9-44.5); Hemoglobin 7.2 g/dL (12.0-15.5); Mean Corpuscular HGB CONC 32.9 g/dL (32.0-36.0); Mean Corpuscular Volume 97.3 fl (81.6-98.3); Mean Platelet Volume 11.6 fl (7.4-10.4); Platelet Count 129 10x3/uL (150-450); RBC Distribution Width 17.7 % (11.5-14.5); Red Blood Cell (RBC) Count 2.25 10x6/uL (3.90-5.03); White Blood Cell (WBC) Count 9.8 10x3/uL (3.5-10.5)
[2023-03-11] MEDS: metroNIDAZOLE 500 MG in Premix 1 BAG IVPB SCH ×3 (05:46→21:06)
[2023-03-11] MEDS: Ipratropium/Albuterol 3 ML NEB NEB SCH ×4 (07:09→19:05)
[2023-03-11] MEDS: Mometasone/Formoterol 60 PUFF AER INH SCH ×2 (08:15→19:05)
[2023-03-11] MEDS: methylPREDNISolone Sod Succ 40 MG VIAL IVP SCH (09:40)
[2023-03-11] MEDS: HYDROcodone/Acetaminophen 5/325 mg Tablet PO PRN ×2 (13:02→22:55)
[2023-03-11] MEDS: cefTRIAXone\\ROCEPHIN 2 GM in Sodium Chloride 0.9% 100 ML IVPB SCH (19:40)
[2023-03-11] MEDS: Apixaban 5 MG TAB PO SCH (21:06)
[2023-03-11 23:36] LABS: Vancomycin, Trough 21.3 ug/mL
[2023-03-12 03:26] LABS: #Monocytes 0.4 10x3/uL (0.0-1.1); #Neutrophils 5.1 10x3/uL (1.5-8.4); %Basophils 0.2 % (0.0-2.0); %Lymphocytes 13.7 % (18.0-47.0); %Monocytes 5.6 % (0.0-10.0); %Neutrophils 78.5 % (40.0-75.0); Hematocrit 21.7 % (34.9-44.5); Mean Corpuscular HGB CONC 32.3 g/dL (32.0-36.0); Mean Corpuscular Hemoglobin 31.7 pg (27.0-33.0); Mean Corpuscular Volume 98.2 fl (81.6-98.3); Mean Platelet Volume 11.4 fl (7.4-10.4); Platelet Count 119 10x3/uL (150-450); RBC Distribution Width 17.4 % (11.5-14.5); Red Blood Cell (RBC) Count 2.21 10x6/uL (3.90-5.03); White Blood Cell (WBC) Count 6.5 10x3/uL (3.5-10.5)
[2023-03-12 03:38] LABS: Anion Gap 14 mmol/L (10-20); BUN (Urea Nitrogen) 27 mg/dL (9.8-20.1); Calc. Creatinine Clearance 127 mL/min (70-130); Calcium 8.4 mg/dL (7.8-10.44); Carbon Dioxide 22 mmol/L (23-31); Chloride 100 mmol/L (98-107); Estimated GFR 94; Glucose 134 mg/dL (83-110); Potassium 3.2 mmol/L (3.5-5.1); Sodium 133 mmol/L (136-145)
[2023-03-12] MEDS: metroNIDAZOLE 500 MG in Premix 1 BAG IVPB SCH ×3 (05:30→22:53)
[2023-03-12] MEDS: Ipratropium/Albuterol 3 ML NEB NEB SCH ×4 (07:20→19:49)
[2023-03-12] MEDS: Mometasone/Formoterol 60 PUFF AER INH SCH ×2 (07:25→19:47)
[2023-03-12] MEDS: HYDROcodone/Acetaminophen 5/325 mg Tablet PO PRN ×2 (09:20→22:53)
[2023-03-12] MEDS: methylPREDNISolone Sod Succ 40 MG VIAL IVP SCH (09:21)
[2023-03-12] MEDS: Apixaban 5 MG TAB PO SCH ×2 (09:21→20:40)
[2023-03-12] MEDS: cefTRIAXone\\ROCEPHIN 2 GM in Sodium Chloride 0.9% 100 ML IVPB SCH (20:40)
[2023-03-13] MEDS: metroNIDAZOLE 500 MG in Premix 1 BAG IVPB SCH ×3 (06:02→22:57)
[2023-03-13 06:26] LABS: Anion Gap 12 mmol/L (10-20); BUN (Urea Nitrogen) 25 mg/dL (9.8-20.1); Calc. Creatinine Clearance 135 mL/min (70-130); Calcium 8.8 mg/dL (7.8-10.44); Carbon Dioxide 25 mmol/L (23-31); Chloride 106 mmol/L (98-107); Estimated GFR 95; Glucose 89 mg/dL (83-110); Potassium 3.4 mmol/L (3.5-5.1); Sodium 140 mmol/L (136-145)
[2023-03-13 06:28] LABS: #Monocytes 0.5 10x3/uL (0.0-1.1); #Neutrophils 6.8 10x3/uL (1.5-8.4); %Basophils 0.1 % (0.0-2.0); %Lymphocytes 15.2 % (18.0-47.0); %Neutrophils 77.4 % (40.0-75.0); Hematocrit 25.4 % (34.9-44.5); Hemoglobin 8.1 g/dL (12.0-15.5); Mean Corpuscular HGB CONC 31.9 g/dL (32.0-36.0); Mean Corpuscular Hemoglobin 31.4 pg (27.0-33.0); Mean Corpuscular Volume 98.4 fl (81.6-98.3); Mean Platelet Volume 12.1 fl (7.4-10.4); Platelet Count 138 10x3/uL (150-450); RBC Distribution Width 18.1 % (11.5-14.5); Red Blood Cell (RBC) Count 2.58 10x6/uL (3.90-5.03); White Blood Cell (WBC) Count 8.7 10x3/uL (3.5-10.5)
[2023-03-13] MEDS: Ipratropium/Albuterol 3 ML NEB NEB SCH ×4 (07:03→18:55)
[2023-03-13] MEDS: Mometasone/Formoterol 60 PUFF AER INH SCH ×2 (07:05→18:55)
[2023-03-13] MEDS: methylPREDNISolone Sod Succ 40 MG VIAL IVP SCH (07:30)
[2023-03-13] MEDS: Apixaban 5 MG TAB PO SCH ×2 (07:30→20:29)
[2023-03-13] MEDS: Digoxin 0.125 MG TAB PO SCH (09:28)
[2023-03-13] MEDS: cefTRIAXone\\ROCEPHIN 2 GM in Sodium Chloride 0.9% 100 ML IVPB SCH (20:28)
[2023-03-13] MEDS: HYDROcodone/Acetaminophen 5/325 mg Tablet PO PRN (22:58)
[2023-03-14 04:34] LABS: Anion Gap 12 mmol/L (10-20); BUN (Urea Nitrogen) 19 mg/dL (9.8-20.1); Calc. Creatinine Clearance 131 mL/min (70-130); Calcium 8.6 mg/dL (7.8-10.44); Carbon Dioxide 25 mmol/L (23-31); Chloride 105 mmol/L (98-107); Estimated GFR 94; Glucose 123 mg/dL (83-110); Potassium 3.4 mmol/L (3.5-5.1); Sodium 139 mmol/L (136-145)
[2023-03-14 04:37] LABS: #Monocytes 0.5 10x3/uL (0.0-1.1); #Neutrophils 8.1 10x3/uL (1.5-8.4); %Basophils 0.1 % (0.0-2.0); %Eosinophils 0.2 % (0.0-6.0); %Lymphocytes 14.9 % (18.0-47.0); %Monocytes 4.5 % (0.0-10.0); %Neutrophils 79.4 % (40.0-75.0); Hematocrit 26.6 % (34.9-44.5); Hemoglobin 8.3 g/dL (12.0-15.5); Mean Corpuscular HGB CONC 31.2 g/dL (32.0-36.0); Mean Corpuscular Hemoglobin 31.2 pg (27.0-33.0); Mean Platelet Volume 11.4 fl (7.4-10.4); Platelet Count 128 10x3/uL (150-450); RBC Distribution Width 18.5 % (11.5-14.5); Red Blood Cell (RBC) Count 2.66 10x6/uL (3.90-5.03); White Blood Cell (WBC) Count 10.2 10x3/uL (3.5-10.5)
[2023-03-14] MEDS: metroNIDAZOLE 500 MG in Premix 1 BAG IVPB SCH ×3 (05:06→21:59)
[2023-03-14] MEDS: Ipratropium/Albuterol 3 ML NEB NEB SCH ×4 (06:46→21:02)
[2023-03-14] MEDS: Mometasone/Formoterol 60 PUFF AER INH SCH ×2 (06:49→21:05)
[2023-03-14] MEDS: methylPREDNISolone Sod Succ 40 MG VIAL IVP SCH (07:37)
[2023-03-14] MEDS: Apixaban 5 MG TAB PO SCH ×2 (07:39→21:59)
[2023-03-14] MEDS: cefTRIAXone\\ROCEPHIN 2 GM in Sodium Chloride 0.9% 100 ML IVPB SCH (20:57)
[2023-03-14] MEDS: HYDROcodone/Acetaminophen 5/325 mg Tablet PO PRN (22:00)
[2023-03-15] MEDS: metroNIDAZOLE 500 MG in Premix 1 BAG IVPB SCH ×2 (05:15→13:30)
[2023-03-15 05:34] LABS: Hematocrit 25.4 % (34.9-44.5); Hemoglobin 7.9 g/dL (12.0-15.5); Potassium 3.6 mmol/L (3.5-5.1)
[2023-03-15] MEDS: Ipratropium/Albuterol 3 ML NEB NEB SCH ×4 (07:34→19:00)
[2023-03-15] MEDS: Mometasone/Formoterol 60 PUFF AER INH SCH ×2 (07:35→20:45)
[2023-03-15] MEDS: methylPREDNISolone Sod Succ 40 MG VIAL IVP SCH (08:16)
[2023-03-15] MEDS: Apixaban 5 MG TAB PO SCH ×2 (08:16→20:46)
[2023-03-15] MEDS: HYDROcodone/Acetaminophen 5/325 mg Tablet PO PRN (20:46)
[2023-03-15] MEDS: cefTRIAXone\\ROCEPHIN 2 GM in Sodium Chloride 0.9% 100 ML IVPB SCH (20:48)
[2023-03-15] MEDS: metroNIDAZOLE 500 MG TAB PO SCH (20:50)
[2023-03-16] MEDS: Ipratropium/Albuterol 3 ML NEB NEB SCH ×4 (07:10→19:27)
[2023-03-16] MEDS: Mometasone/Formoterol 60 PUFF AER INH SCH ×2 (09:05→19:25)
[2023-03-16] MEDS: Apixaban 5 MG TAB PO SCH ×2 (09:25→22:07)
[2023-03-16] MEDS: metroNIDAZOLE 500 MG TAB PO SCH ×3 (09:25→22:07)
[2023-03-16] MEDS: Polyethylene Glycol 3350 17 GM Packet PO PRN (09:25)
[2023-03-16] MEDS: methylPREDNISolone Sod Succ 40 MG VIAL IVP SCH (09:25)
[2023-03-16] MEDS ORDERED: Sodium Chloride 0.65% Nasal 44 ML BOT EA NARE PRN (16:29)
[2023-03-16] MEDS: cefTRIAXone\\ROCEPHIN 2 GM in Sodium Chloride 0.9% 100 ML IVPB SCH (22:07)
[2023-03-16] MEDS: HYDROcodone/Acetaminophen 5/325 mg Tablet PO PRN (22:13)
[2023-03-17 05:46] LABS: Anion Gap 14 mmol/L (10-20); BUN (Urea Nitrogen) 18 mg/dL (9.8-20.1); Calc. Creatinine Clearance 136 mL/min (70-130); Calcium 8.5 mg/dL (7.8-10.44); Carbon Dioxide 22 mmol/L (23-31); Chloride 107 mmol/L (98-107); Estimated GFR 96; Glucose 80 mg/dL (83-110); Potassium 4.3 mmol/L (3.5-5.1); Sodium 139 mmol/L (136-145)
[2023-03-17 06:26] LABS: MDiff Complete? YES
[2023-03-17 06:27] LABS: Lymphocytes 23 % (21-51); Monocytes 4 % (0-10); Myelocyte 2 % (0-0); Neutrophil 70 % (42-75); Nucleated RBC (Manual Ct) 1 % (0); Reactive Lymphocytes 1 % (0-10)
[2023-03-17 06:28] LABS: Anisocytosis MODERATE=16-30 cells (100X) (0-5/hpf); Ovalocytes SLIGHT = 2-5 cells (100X) (0-1/hpf); Platelet Adequacy Comment Appears Decreased; Polychromasia SLIGHT = 2-3 cells (100X) (0-2/hpf); Toxic Granulation SLIGHT; Vacuoles SLIGHT
[2023-03-17 06:30] LABS: Hematocrit 27.4 % (34.9-44.5); Hemoglobin 8.6 g/dL (12.0-15.5); Mean Corpuscular HGB CONC 31.4 g/dL (32.0-36.0); Mean Corpuscular Hemoglobin 31.4 pg (27.0-33.0); Mean Platelet Volume 11.9 fl (7.4-10.4); Platelet Count 126 10x3/uL (150-450); RBC Distribution Width 19.1 % (11.5-14.5); Red Blood Cell (RBC) Count 2.74 10x6/uL (3.90-5.03); White Blood Cell (WBC) Count 9.6 10x3/uL (3.5-10.5)
[2023-03-17] MEDS: Ipratropium/Albuterol 3 ML NEB NEB SCH ×4 (07:50→19:46)
[2023-03-17] MEDS: Mometasone/Formoterol 60 PUFF AER INH SCH ×2 (07:55→19:41)
[2023-03-17] MEDS: metroNIDAZOLE 500 MG TAB PO SCH ×3 (08:10→20:39)
[2023-03-17] MEDS: methylPREDNISolone Sod Succ 40 MG VIAL IVP SCH (08:10)
[2023-03-17] MEDS: Apixaban 5 MG TAB PO SCH ×2 (08:10→20:40)
[2023-03-17] MEDS: Budesonide 0.5 MG/2 ML NEB INH SCH (19:41)
[2023-03-17] MEDS: cefTRIAXone\\ROCEPHIN 2 GM in Sodium Chloride 0.9% 100 ML IVPB SCH (20:37)
[2023-03-17] MEDS: Acetaminophen 325 MG TAB PO PRN (20:43)
[2023-03-18] MEDS: Ipratropium/Albuterol 3 ML NEB NEB SCH ×4 (07:30→18:50)
[2023-03-18] MEDS: Budesonide 0.5 MG/2 ML NEB INH SCH ×2 (07:30→18:48)
[2023-03-18] MEDS: Apixaban 5 MG TAB PO SCH ×2 (09:09→20:51)
[2023-03-18] MEDS: metroNIDAZOLE 500 MG TAB PO SCH ×3 (09:09→20:51)
[2023-03-18] MEDS: predniSONE 20 MG TAB PO SCH (09:09)
[2023-03-18] MEDS: cefTRIAXone\\ROCEPHIN 2 GM in Sodium Chloride 0.9% 100 ML IVPB SCH (20:51)
[2023-03-19] MEDS: Ipratropium/Albuterol 3 ML NEB NEB SCH ×4 (07:30→19:13)
[2023-03-19] MEDS: Budesonide 0.5 MG/2 ML NEB INH SCH ×2 (07:35→19:17)
[2023-03-19] MEDS: predniSONE 20 MG TAB PO SCH (11:41)
[2023-03-19] MEDS: Apixaban 5 MG TAB PO SCH ×2 (11:41→21:35)
[2023-03-19] MEDS: metroNIDAZOLE 500 MG TAB PO SCH ×3 (11:41→21:35)
[2023-03-19] MEDS: cefTRIAXone\\ROCEPHIN 2 GM in Sodium Chloride 0.9% 100 ML IVPB SCH (21:35)
[2023-03-19] MEDS: Acetaminophen 325 MG TAB PO PRN (21:36)
[2023-03-20 05:29] LABS: #Monocytes 0.5 10x3/uL (0.0-1.1); %Eosinophils 0.2 % (0.0-6.0); %Lymphocytes 9.9 % (18.0-47.0); %Monocytes 5.1 % (0.0-10.0); %Neutrophils 83.9 % (40.0-75.0); Hematocrit 28.6 % (34.9-44.5); Hemoglobin 8.9 g/dL (12.0-15.5); Mean Corpuscular HGB CONC 31.1 g/dL (32.0-36.0); Mean Corpuscular Hemoglobin 31.2 pg (27.0-33.0); Mean Corpuscular Volume 100.4 fl (81.6-98.3); Mean Platelet Volume 12.1 fl (7.4-10.4); Platelet Count 127 10x3/uL (150-450); RBC Distribution Width 19.1 % (11.5-14.5); Red Blood Cell (RBC) Count 2.85 10x6/uL (3.90-5.03); White Blood Cell (WBC) Count 9.5 10x3/uL (3.5-10.5)
[2023-03-20] MEDS: Ipratropium/Albuterol 3 ML NEB NEB SCH ×4 (06:55→20:05)
[2023-03-20] MEDS: Budesonide 0.5 MG/2 ML NEB INH SCH ×2 (06:55→20:09)
[2023-03-20] MEDS: predniSONE 20 MG TAB PO SCH (10:47)
[2023-03-20] MEDS: Apixaban 5 MG TAB PO SCH ×2 (10:48→20:40)
[2023-03-20] MEDS: metroNIDAZOLE 500 MG TAB PO SCH ×3 (10:48→20:40)
[2023-03-20] MEDS: cefTRIAXone\\ROCEPHIN 2 GM in Sodium Chloride 0.9% 100 ML IVPB SCH (20:40)
[2023-03-21] MEDS: Budesonide 0.5 MG/2 ML NEB INH SCH ×3 (07:05→20:15)
[2023-03-21] MEDS: Ipratropium/Albuterol 3 ML NEB NEB SCH ×4 (07:05→20:05)
[2023-03-21] MEDS: Apixaban 5 MG TAB PO SCH ×2 (09:11→21:09)
[2023-03-21] MEDS: predniSONE 20 MG TAB PO SCH (09:11)
[2023-03-21] MEDS: metroNIDAZOLE 500 MG TAB PO SCH ×3 (09:11→21:09)
[2023-03-21] MEDS: cefTRIAXone\\ROCEPHIN 2 GM in Sodium Chloride 0.9% 100 ML IVPB SCH (21:07)
[2023-03-22] MEDS: Budesonide 0.5 MG/2 ML NEB INH SCH ×2 (06:30→19:38)
[2023-03-22] MEDS: Ipratropium/Albuterol 3 ML NEB NEB SCH ×4 (06:30→19:37)
[2023-03-22] MEDS: predniSONE 20 MG TAB PO SCH (08:47)
[2023-03-22] MEDS: metroNIDAZOLE 500 MG TAB PO SCH ×3 (08:47→20:30)
[2023-03-22] MEDS: Apixaban 5 MG TAB PO SCH ×2 (08:47→20:30)
[2023-03-22] MEDS: cefTRIAXone\\ROCEPHIN 2 GM in Sodium Chloride 0.9% 100 ML IVPB SCH (20:29)
[2023-03-22] MEDS: Acetaminophen 325 MG TAB PO PRN (20:34)
[2023-03-22] MEDS ORDERED: diphenhydrAMINE 25 MG CAP PO PRN (23:00)
[2023-03-23] MEDS: Ipratropium/Albuterol 3 ML NEB NEB SCH ×3 (07:35→15:40)
[2023-03-23] MEDS: Budesonide 0.5 MG/2 ML NEB INH SCH (07:35)
[2023-03-23] MEDS ORDERED: predniSONE 10 MG TAB PO SCH (08:00)
[2023-03-23 08:54] VITALS: BMI 37.8
[2023-03-23] MEDS: Apixaban 5 MG TAB PO SCH (09:01)
[2023-03-23] MEDS: metroNIDAZOLE 500 MG TAB PO SCH ×2 (09:01→15:20)
[2023-03-23] MEDS: Hydrocortisone 2.5% Cream 30 GM TUBE TOP SCH ×2 (10:31→15:26)
[2023-03-23 16:29] VITALS: BP 139/78; TEMP 97.6
== END 2023-03-23 16:45 | DRG 853 ==
LOC: CSHERS 17:54 → CSHIMCU 03-02 00:59 → CSHTELE 03-16 13:32
PROVIDERS: ADMIT Student in an Organized Health Care Education/Training Program; ATTEND Internal Medicine
PROC: 06HY33Z Insertion of Infusion Device into Lower Vein, Percutaneous Approach (ICD-10-PCS; 2023-03-02)
PROC: 3E033XZ Introduction of Vasopressor into Peripheral Vein, Percutaneous Approach (ICD-10-PCS; 2023-03-02)
PROC: 3E03329 Introduction of Other Anti-infective into Peripheral Vein, Percutaneous Approach (ICD-10-PCS; 2023-03-02)
PROC: 0JB70ZZ Excision of Back Subcutaneous Tissue and Fascia, Open Approach (ICD-10-PCS; principal; 2023-03-03)
PROC: 5A0955A Assistance with Respiratory Ventilation, Greater than 96 Consecutive Hours, High Flow/Velocity Cannula (ICD-10-PCS; 2023-03-04)
PROC: 02HV33Z Insertion of Infusion Device into Superior Vena Cava, Percutaneous Approach (ICD-10-PCS; 2023-03-08)
PROC: B548ZZA Ultrasonography of Superior Vena Cava, Guidance (ICD-10-PCS; 2023-03-08)
PROC: 30233J1 Transfusion of Nonautologous Serum Albumin into Peripheral Vein, Percutaneous Approach (ICD-10-PCS; 2023-03-11)
DX: A41.59 Other Gram-negative sepsis (principal); J96.21 Acute and chronic respiratory failure with hypoxia; R65.21 Severe sepsis with septic shock; G82.20 Paraplegia, unspecified; N17.9 Acute kidney failure, unspecified; I82.401 Acute embolism and thrombosis of unspecified deep veins of right lower extremity; E87.20 Acidosis, unspecified; N13.6 Pyonephrosis; E87.1 Hypo-osmolality and hyponatremia; I50.32 Chronic diastolic (congestive) heart failure; I96 Gangrene, not elsewhere classified; D64.9 Anemia, unspecified; E55.9 Vitamin D deficiency, unspecified; L89.150 Pressure ulcer of sacral region, unstageable; I27.21 Secondary pulmonary arterial hypertension; J45.909 Unspecified asthma, uncomplicated; R00.1 Bradycardia, unspecified; I27.20 Pulmonary hypertension, unspecified; I11.0 Hypertensive heart disease with heart failure; Z99.81 Dependence on supplemental oxygen; Z74.01 Bed confinement status; Z88.1 Allergy status to other antibiotic agents; Z88.8 Allergy status to other drugs, medicaments and biological substances; Z79.01 Long term (current) use of anticoagulants; Z79.899 Other long term (current) drug therapy; Z86.711 Personal history of pulmonary embolism; Z86.718 Personal history of other venous thrombosis and embolism; Z98.51 Tubal ligation status; Z98.890 Other specified postprocedural states
CPT/HCPCS: 36415; 36569; 36600; 51701; 71045; 74177; 80048; 80053; 80162; 80202; 80400; 81001; 82040; 82306; 82533; 82728; 82805; 83540; 83550; 83605; 83630; 83690; 83880; 84132; 84145; 84443; 85014; 85018; 85025; 85610; 85730; 86140; 86850; 86900; 86901; 87040; 87070; 87076; 87077; 87086; 87149; 87186; 87205; 87324; 87449; 87505; 88304; 93005; 93010; 93306; 93970; 94640; 94664; 94760; 94762; 96361; 96374; 96375; 97139; C1751; C9113; J0171; J0692; J0696; J0834; J1650; J1720; J2001; J2185; J2270; J2405; J2704; J2920; J3010; J3370; J3490; J7050; J7070; J7120; J7512; J7620; J7626; P9047; Q9967; S0020

== ENCOUNTER 2023-05-26 14:08 | Outpatient (CLI) | payer OTHER, MEDICAID, MEDICARE | END 2023-05-26 14:09 | disposition home or self-care (01) | LOC: CSHWCC 14:08 | PROVIDERS: ATTEND Preventive Medicine Undersea and Hyperbaric Medicine | DX: L89.154 Pressure ulcer of sacral region, stage 4 (principal); G82.21 Paraplegia, complete | CPT/HCPCS: 99215; G0463 ==

== ENCOUNTER 2023-06-21 10:51 | Outpatient (CLI) | payer OTHER, MEDICAID | END 2023-06-21 10:52 | disposition home or self-care (01) | LOC: CSHWCC 10:51 | PROVIDERS: ATTEND Nurse Practitioner Family | DX: L89.154 Pressure ulcer of sacral region, stage 4 (principal); G82.21 Paraplegia, complete | CPT/HCPCS: 11044; 11047 ==

== ENCOUNTER 2023-07-01 14:00 | Outpatient (CLI) | payer OTHER, MEDICAID ==
[~2023-07-01 14:00] MED LIST changes: -Iopamidol 300 61% 100 ML VIAL FS ONE; +Magnevist 469MG/ML 20 ML VIAL ONE
== END 2023-07-01 14:01 | disposition home or self-care (01) ==
LOC: CSHMRI 14:00
PROVIDERS: ATTEND Preventive Medicine Undersea and Hyperbaric Medicine
DX: G82.21 Paraplegia, complete (principal); L89.154 Pressure ulcer of sacral region, stage 4; M46.28 Osteomyelitis of vertebra, sacral and sacrococcygeal region
CPT/HCPCS: 72197; 82565; A9579